=== PATIENT | male | born 1970 | race Caucasian/White ===

== ENCOUNTER 2017-06-28 07:37 | Emergency (ER) | payer SELFPAY ==
[~2017-06-28] VITALS: Ht 177.8 cm; Wt 95.5 kg
[~2017-06-28 07:37] MED LIST: ATIVAN 1MG T1 MG/TAB PO; HCTZ 25MG TAB25 MG PO; NO HOME MEDICATIONS; NORCO 325 MG-51 TAB PO; PRILOSEC 20MG20 MG PO; TRANDATE 200MG200 MG PO; ZESTRIL 20MG TA20 MG PO
[2017-06-28 07:44] VITALS: TEMP 96.7
[2017-06-28] MEDS ORDERED: PEN-VEE K500 MG PO (08:13)
[2017-06-28] MEDS ORDERED: VOLTAREN 75 DR75 MG PO (08:13)
[2017-06-28] MEDS ORDERED: PROCARDIA XL 6060 MG PO (08:13)
[2017-06-28] MEDS ORDERED: LIDOCAINE HCL100 M1 MM (08:13)
[2017-06-28 09:10] VITALS: BP 178/102; PULSE 82
[2017-06-29] MEDS ORDERED: TENORMIN 5050 MG/TAB PO (09:39)
[2017-06-29] MEDS ORDERED: PRINZIDE 25 MG-1 TAB PO (09:39)
[2017-06-29] MEDS ORDERED: NORCO 325 MG-51 TAB PO (09:43)
== END 2017-06-28 09:24 | disposition home or self-care (01) ==
LOC: COL.ER 07:37
DX: K02.9 Dental caries, unspecified (principal); I10 Essential (primary) hypertension; F17.210 Nicotine dependence, cigarettes, uncomplicated
CPT/HCPCS: J1885

== ENCOUNTER 2017-06-29 08:57 | Emergency (ER) | payer SELFPAY ==
[~2017-06-29] VITALS: Ht 177.8 cm; Wt 95.5 kg
[~2017-06-29 08:57] MED LIST changes: +LIDOCAINE HCL100 M1 MM; +PEN-VEE K500 MG PO; +PROCARDIA XL 6060 MG PO; +VOLTAREN 75 DR75 MG PO
[2017-06-29 09:03] VITALS: BP 182/119; PULSE 84; TEMP 97.5
[2017-06-29] MEDS ORDERED: PRINZIDE 25 MG-1 TAB PO (09:39)
[2017-06-29] MEDS ORDERED: TENORMIN 5050 MG/TAB PO (09:39)
[2017-06-29] MEDS ORDERED: NORCO 325 MG-51 TAB PO (09:43)
== END 2017-06-29 09:58 | disposition home or self-care (01) ==
LOC: COL.ER 08:57
DX: K08.89 Other specified disorders of teeth and supporting structures (principal); I10 Essential (primary) hypertension; F17.210 Nicotine dependence, cigarettes, uncomplicated; Z91.120 Patient's intentional underdosing of medication regimen due to financial hardship

== ENCOUNTER 2019-04-28 11:30 | Emergency (ER) | payer SELFPAY ==
[~2019-04-28] VITALS: Ht 177.8 cm; Wt 104.5 kg
[~2019-04-28 11:30] MED LIST changes: +PRINZIDE 25 MG-1 TAB PO; +TENORMIN 5050 MG/TAB PO
[2019-04-28] MEDS ORDERED: NORCO 325 MG-51 TAB PO (14:52)
[2019-04-28] MEDS ORDERED: PRINZIDE 12.5 M1 TAB PO (14:54)
[2019-04-28 15:38] VITALS: BP 195/105; PULSE 90; TEMP 98
== END 2019-04-28 15:38 | disposition home or self-care (01) ==
LOC: COL.ER 11:30
DX: S42.401A Unspecified fracture of lower end of right humerus, initial encounter for closed fracture (principal); F17.210 Nicotine dependence, cigarettes, uncomplicated; Z91.19 Patient's noncompliance with other medical treatment and regimen; W08.XXXA Fall from other furniture, initial encounter
CPT/HCPCS: J2270; J2405; Q4050

== ENCOUNTER → 2019-05-03 | Outpatient (CLI) | payer SELFPAY ==
[~2019-05-03] MED LIST changes: +PRINZIDE 12.5 M1 TAB PO
== END ==
LOC: COL.RAD 10:59
DX: M25.421 Effusion, right elbow (principal)

== ENCOUNTER 2019-05-09 07:29 | Emergency (ER) | payer SELFPAY ==
[~2019-05-09] VITALS: Ht 157.5 cm; Wt 102.3 kg
[2019-05-09 07:47] VITALS: TEMP 98.6
[2019-05-09] MEDS ORDERED: AMOXICILLIN 8751 TAB PO (08:05)
[2019-05-09 08:11] VITALS: BP 165/99; PULSE 79
== END 2019-05-09 08:15 | disposition home or self-care (01) ==
LOC: COL.ER 07:29
DX: K04.7 Periapical abscess without sinus (principal); F12.90 Cannabis use, unspecified, uncomplicated; F17.210 Nicotine dependence, cigarettes, uncomplicated

== ENCOUNTER 2019-05-15 10:54 | Day surgery (SDC) | payer SELFPAY ==
[2019-05-15] VITALS (7 sets, daily range): BP systolic 123–167; BP diastolic 74–96; PULSE 65–87; TEMP 98.1
[~2019-05-15] VITALS: Ht 177.8 cm; Wt 100.4 kg
[~2019-05-15 10:54] MED LIST changes: +AMOXICILLIN 8751 TAB PO
--- NOTE | 2019-05-15 16:20 | NUR ---
Patient alert and oriented, answers questions appropriately. RUE with sling and bulky dressing intact. Radial pulse palpable. Numbness to fingers and hand. No c/o of pain. Requests to be discharged.
--- NOTE | 2019-05-15 17:05 | NUR ---
Patient refuses to leave blood pressure cuff on, requests to be discharged. Dr Mims notified.
--- NOTE | 2019-05-15 17:30 | NUR ---
Continues to refuses vital signs and neuro assessment.
--- NOTE | 2019-05-15 18:00 | NUR ---
Discharge instructions reviewed with patient, verbalized understanding. Discharged ambulatory to auto/home with friend.
== END 2019-05-15 18:00 | disposition home or self-care (01) ==
LOC: SDCO 10:54
DX: S52.121A Displaced fracture of head of right radius, initial encounter for closed fracture (principal); S52.041A Displaced fracture of coronoid process of right ulna, initial encounter for closed fracture; S53.441A Ulnar collateral ligament sprain of right elbow, initial encounter; W17.89XA Other fall from one level to another, initial encounter; Y93.9 Activity, unspecified; Z87.891 Personal history of nicotine dependence; Z83.3 Family history of diabetes mellitus; Z82.49 Family history of ischemic heart disease and other diseases of the circulatory system; Z83.6 Family history of other diseases of the respiratory system
CPT/HCPCS: C1713; C1769; C1776; J0690; J1100; J2250; J2704; J2795; J3010; J7120

== ENCOUNTER 2020-11-21 07:31 | Emergency (ER) | payer SELFPAY ==
[~2020-11-21] VITALS: Ht 177.8 cm; Wt 109.1 kg
[2020-11-21 07:35] VITALS: TEMP 97.8
[2020-11-21] MEDS ORDERED: NORCO 325 MG-51 TAB PO (08:08)
[2020-11-21] MEDS ORDERED: AMOXICILLIN 50500 MG PO (08:08)
[2020-11-21] MEDS ORDERED: NORVASC 5MG5 MG/TAB PO (08:08)
[2020-11-21 08:20] VITALS: BP 182/112; PULSE 81
== END 2020-11-21 08:20 | disposition home or self-care (01) ==
LOC: COL.ER 07:31
DX: K04.7 Periapical abscess without sinus (principal); I10 Essential (primary) hypertension